=== PATIENT | male | born 1975 | race Two or more races ===

== ENCOUNTER → 2025-05-14 | Emergency (ER) | payer BC ==
[~2025-05-14] VITALS: Ht 177.8 cm; Wt 81.6 kg
[~2025-05-14] MED LIST: 0.9 % SODIUM CHLORIDE 1,000 ML IV STA; CEPHALEXIN500 M1 PO; CLONIDINE HCL 0.1 MG TABLET PO ONE; KETO10TA2 PO; KETOROLAC TROMETHAMINE 30 MG VIAL IV ONE; KETOROLAC TROMETHAMINE 30 MG VIAL ONE; MORPHINE SULFATE 4 MG/ML CARTRIDGE IV ONE; PIPERACILLIN/TAZOBACTAM SODIUM 3.375 GM VIAL IV ONE; TAMS0.4C PO; TAMSULOSIN HCL 0.4 MG CAP PO ONE
[2025-05-14 09:33] LABS: BASO % 0.7 % (0.1-1.2); EOS # 0.26 (0.04-0.54); EOS % 1.6 % (0.7-7.0); LYMPH # 4.87 (1.18-3.74); LYMPH % 30.4 % (19.3-53.1); MEAN PLATELET VOLUME 9.40 fl (9.4-12.4); MONO # 1.15 (0.24-0.82); MONO % 7.2 % (4.7-12.5); NEUT # 9.55 (1.56-6.13); NEUT % 59.5 % (34.0-71.1); RED CELL DISTRIBUTION WIDTH 12.4 % (11.6-14.4)
[2025-05-14 10:09] LABS: ALT/SGPT 48.0 U/L (12-78); AST/SGOT 24.0 U/L (15-37); BILIRUBIN TOTAL 0.5 mg/dL (0.3-1.2); BUN CREA RATIO 13.0 (7.0-25.0); CREATININE SERUM 1.09 mg/dL (0.70-1.30); GFR 71.9; GLOBULINA 3.8 G/DL (2.4-3.5); GLUCOSE FASTING 157.0 mg/dL (65-100); OSMOLALITY SERUM 289.0 MOSM/KG (275-295)
[2025-05-14 10:24] LABS: INR 1.0
[2025-05-14 11:33] LABS: URINE APPEARANCE Clear; URINE BILIRRUBIN Negative (NEGATIVE); URINE BLOOD Large; URINE COLOR Yellow; URINE GLUCOSE Negative (NEGATIVE); URINE KETONE Trace (NEGATIVE); URINE LEUKOCYTE Negative; URINE NITRATE Negative; URINE PROTEIN Negative (NEGATIVE); URINE UROBILINOGEN 0.2 E.U./dl
[2025-05-14 11:34] LABS: URINE BACTERIA 13.2 uL (0.0-1933); URINE RBC 160.5 uL (0.0-20.8); URINE WBC 7.3 uL (0.0-23.2)
[2025-05-14 11:46] LABS: URINE CAST 0.00 uL (0.0-1.40); URINE EPITHELIAL CELLS 1.0 uL (0.0-38.8)
[2025-05-14 16:10] LABS: BASO % 0.6 % (0.1-1.2); EOS # 0.00 (0.04-0.54); EOS % 0.0 % (0.7-7.0); LYMPH # 2.75 (1.18-3.74); LYMPH % 17.1 % (19.3-53.1); MEAN PLATELET VOLUME 9.20 fl (9.4-12.4); MONO # 1.12 (0.24-0.82); MONO % 7.0 % (4.7-12.5); NEUT # 12.02 (1.56-6.13); NEUT % 74.5 % (34.0-71.1); RED CELL DISTRIBUTION WIDTH 12.6 % (11.6-14.4)
== END | disposition home or self-care (01) ==
LOC: ER 09:11
PROVIDERS: Emergency Medicine
DX: N20.1 Calculus of ureter (principal); R10.9 Unspecified abdominal pain
CPT/HCPCS: 36415; 74177; Q9965